=== PATIENT | male | born 1975 | race Caucasian/White ===

== ENCOUNTER 2017-03-10 19:43 | Inpatient (IN) ==
--- NOTE | 2017-03-10 20:08 | Emergency Department Note ---
Disposition Clinical Impression: Suicidal ideation Disposition: Admitted As Inpatient Condition: Undetermined Referrals: Dawit Vasquez MD [Partnered Physician] - Forms: ED Satisfaction Letter Time of Disposition: 23:09 Psych HPI - General Chief Complaint: ED Psychiatric Symptoms Stated Complaint: SI, has not slept in 4 days//not taking meds Time Seen by Provider: 03/10/17 20:04 Source: patient Mode of arrival: ambulatory Limitations: no limitations Nursing Notes Reviewed: Yes Vital Signs Reviewed: Yes - History of Present Illness HPI Narrative: A 1-year-old male with extensive history of bipolar disorder arrives to [facility] emergency department complaining of lack of sleep for the past 5 days, depression, suicidal ideations with plan. The patient states that he is feeling as though he is starting to get manic. The patient states that he has not been taking his medication for quite some time. The patient has been admitted to one in the past. He denies any homicidal or hallucinations at this time. The patient states he is having nightmares and having difficulty sleeping associated with this. Patient denies any other complaints at this time other than baseline right shoulder pain. Pt complaint: suicidal ideation, feels depressed Onset (ago): unknown Duration: constant, getting worse History of similar episodes: Yes Improves with: none Worsens with: none Context: not taking psychiatric medications Alleged intoxication: No Associated Psychiatric Symptoms: depression, suicidal ideation, racing thoughts Associated symptoms: Reports: denies other symptoms Traumatic symptoms: denies traumatic injury Treatments prior to arrival: none Self harm or harm to others: admits thoughts of self harm, has plan - Related Data Previous Rx's Medication Instructions Recorded Methocarbamol [Robaxin-750] 750 mg PO TID PRN #20 tablet 04/14/15 Naproxen [Naprosyn] 500 mg PO BID #20 tablet 04/14/15 OxyCODONE/APAP 10/325 [Percocet 1 each PO QID PRN #20 tablet 04/14/15 10/325] Hydrocodone/Acetaminophen [[place] 1 each PO Q6H PRN #8 tablet 05/10/16 5-325 Tablet] Ibuprofen [Motrin] 600 mg PO Q8HR PRN #20 tab 05/10/16 Amoxicillin 875 mg PO BID #20 tablet 07/15/16 Fexofenadine/Pseudoephedrine 1 each PO BID PRN #30 tab.er.12h 07/15/16 [Ana Laura-D 12 Hour Tablet] Fluticasone Propionate Nasal 2 spray NS DAILY PRN #1 unit 07/15/16 [Flonase] Ibuprofen [Motrin] 800 mg PO Q6-8H PRN #30 tablet 07/15/16 Ibuprofen 400 mg PO TID PRN 5 Days 08/22/16 Allergies Allergy/AdvReac Type Severity Reaction Status Date / Time .steroids Allergy Agitated Uncoded 05/10/16 07:14 All systems ED: reviewed and negative except as stated. Constitutional: Denies: fever, chills, weakness, weight change Eyes: Denies: eye pain, eye discharge, vision change ENT ED: Denies: ear pain, throat pain, dental pain, hearing loss, epistaxis, congestion, dysphagia Cardiovascular: Denies: chest pain, palpitations, dyspnea on exertion, edema, syncope Respiratory: Denies: cough, dyspnea, wheezes, hemoptysis, stridor Gastrointestinal: Denies: abdominal pain, nausea, vomiting, diarrhea, constipation, hematemesis, melena, hematochezia Genitourinary: Denies: urgency, dysuria, frequency, hematuria Musculoskeletal: Denies: back pain, neck pain, arthralgia, myalgia Integumentary: Denies: rash, abrasion, lesions Neurological: Denies: headache, weakness, numbness, paresthesias, confusion, abnormal gait, vertigo Psychiatric: Reports: anxiety, depression, suicidal thoughts. Denies: homicidal thoughts, auditory hallucinations, visual hallucinations Past Medical History - Past Medical History Attestation: Yes The following information was validated with the patient. Source: patient Medical history: Reports: non-contributory Surgical history: Reports: non-contributory Psychiatric history: Reports: anxiety, bipolar, depression, previous psychiatric hospitalization - Social History Smoking Status: Current every day smoker Smokeless Tobacco Status: No Alcohol use: Reports: heavy Drug use: Reports: none Physical Exam - General Limitations: no limitations General appearance: alert - Head Head exam: atraumatic, normocephalic, normal inspection - Eye Eye exam: Present: normal appearance, PERRL, EOMI - ENT ENT exam: normal exam, normal oropharynx, mucous membranes moist - Neck Neck exam: Present: normal inspection, full ROM, trachea midline - Chest Chest inspection: Present: normal inspection, symmetric chest wall rise - Respiratory Respiratory exam: Present: normal lung sounds bilaterally - Cardiovascular Cardiovascular exam: Present: regular rate, normal rhythm, normal heart sounds - Abdominal Exam Abdominal exam: Present: soft, Non-Tender. Absent: tenderness, distention, guarding, rebound, rigidity - Extremities Exam Extremities exam: Present: normal inspection, full ROM. Absent: tenderness, pedal edema - Neurological Exam Neurological exam: Present: alert, oriented X3 - Psychiatric Psychiatric exam: Present: depressed, flat affect, suicidal ideation Course Vital Signs Temperature 98.0 F 03/10/17 19:58 Pulse Rate 94 03/10/17 19:58 Respiratory Rate 18 03/10/17 19:58 Blood Pressure 154/93 03/10/17 19:58 O2 Sat by Pulse Oximetry 97 03/10/17 19:58 Temperature 98.0 F 03/10/17 19:58 Pulse Rate 94 03/10/17 19:58 Respiratory Rate 18 03/10/17 19:58 Blood Pressure 154/93 03/10/17 19:58 O2 Sat by Pulse Oximetry 97 03/10/17 19:58 Oxygen Delivery Oxygen Delivery Room Air Psych - MDM Narrative Medical decision making narrative: 2141: Patient is medically clear. 1A has been called. 2309: Patient accepted for admission to 1 a. - Lab Data Result diagrams: 03/10/17 20:51 03/10/17 20:51 Lab Results 03/10/17 03/10/17 03/10/17 Range/Units 20:14 20:14 20:51 WBC 9.8 (4.3-11.1) K/mcL RBC 4.68 (4.19-5.50) M/mcL Hgb 15.1 (12.9-16.9) g/dL Hct 42.8 (37.5-50.1) % MCV 91.5 (83.0-100.0) fL MCH 32.3 (28.0-33.3) pg MCHC 35.3 (31.6-35.5) g/dL RDW 13.5 (11.5-14.5) % Plt Count 297 (140-400) K/mcL MPV 9.5 (9.4-12.4) fL Immature Gran % 0.3 (0-4) % Seg Neutrophils % 51.9 % Lymphocytes % 39.5 % Monocytes % 6.7 % Eosinophils % 1.3 % Basophils % 0.3 % Neutrophils # 5.1 (1.6-8.9) K/mcL Lymphocytes # 3.9 (0.6-4.6) K/mcL Monocytes # 0.7 (0.0-1.3) K/mcL Eosinophils # 0.1 (0.0-0.6) K/mcL Basophils # 0.0 (0.0-0.2) K/mcL Sodium (136-145) mEq/L Potassium (3.5-4.5) mEq/L Chloride (98-109) mEq/L Carbon Dioxide (19-29) mEq/L BUN (8-26) mg/dL Creatinine (0.72-1.25) mg/dL Est GFR ( Amer) (> 60) Est GFR (Non-Af Amer) (> 60) BUN/Creatinine Ratio (6-26) Glucose (70-99) mg/dL Calculated Osmolality (280-300) Calcium (8.6-10.8) mg/dL TSH (0.350-4.840) mcIU/mL Urine Color Yellow (Yellow) Urine Clarity Clear (Clear) Urine pH 5.5 (5.0-8.0) pH Units Ur Specific [place] 1.028 H (1.010-1.025) Urine Protein Negative (Neg-Trace) mg/dL Urine Glucose (UA) Normal (Normal) mg/dL Urine Ketones Negative (Negative) mg/dL Urine Blood Large H (Negative) Urine Nitrite Negative (Negative) Urine Bilirubin Negative (Negative) Urine Urobilinogen Normal (Normal) mg/dL Ur Leukocyte Esterase Small H (Negative) Urine Microscopic RBC 5-15 H (0-3) per hpf Urine Microscopic WBC 5-15 H (0-3) per hpf Ur Squamous Epith Cells Many H (None-Few) per lpf Urine Bacteria Few (None-Few) per hpf Hyaline Casts Few (None-Few) per lpf Urine Mucus Few (Few) Urine Yeast Test Not Performed Salicylates (15-30) mg/dL Urine Opiates Screen Positive H (Nhwjyl=005) ng/mL Acetaminophen (10-30) mcg/mL Ur Barbiturates Screen Negative (Etrzxq=353) ng/mL Ur Phencyclidine Scrn Negative (Cutoff=25) ng/mL Ur Amphetamines Screen Negative (Xvjyju=4859) ng/mL U Benzodiazepines Scrn Positive H (Cxdptq=162) ng/mL Urine Cocaine Screen Negative (Cutoff= 300) ng/mL U Marijuana (THC) Screen Negative (Cutoff = 50) ng/mL Ethyl Alcohol (0-10) mg/dL 03/10/17 Range/Units 20:51 WBC (4.3-11.1) K/mcL RBC (4.19-5.50) M/mcL Hgb (12.9-16.9) g/dL Hct (37.5-50.1) % MCV (83.0-100.0) fL MCH (28.0-33.3) pg MCHC (31.6-35.5) g/dL RDW (11.5-14.5) % Plt Count (140-400) K/mcL MPV (9.4-12.4) fL Immature Gran % (0-4) % Seg Neutrophils % % Lymphocytes % % Monocytes % % Eosinophils % % Basophils % % Neutrophils # (1.6-8.9) K/mcL Lymphocytes # (0.6-4.6) K/mcL Monocytes # (0.0-1.3) K/mcL Eosinophils # (0.0-0.6) K/mcL Basophils # (0.0-0.2) K/mcL Sodium 137 (136-145) mEq/L Potassium 3.8 (3.5-4.5) mEq/L Chloride 104 (98-109) mEq/L Carbon Dioxide 25 (19-29) mEq/L BUN 11 (8-26) mg/dL Creatinine 0.91 (0.72-1.25) mg/dL Est GFR ( Amer) > 60 (> 60) Est GFR (Non-Af Amer) > 60 (> 60) BUN/Creatinine Ratio 12 (6-26) Glucose 96 (70-99) mg/dL Calculated Osmolality 283 (280-300) Calcium 8.9 (8.6-10.8) mg/dL TSH 1.245 (0.350-4.840) mcIU/mL Urine Color (Yellow) Urine Clarity (Clear) Urine pH (5.0-8.0) pH Units Ur Specific [place] (1.010-1.025) Urine Protein (Neg-Trace) mg/dL Urine Glucose (UA) (Normal) mg/dL Urine Ketones (Negative) mg/dL Urine Blood (Negative) Urine Nitrite (Negative) Urine Bilirubin (Negative) Urine Urobilinogen (Normal) mg/dL Ur Leukocyte Esterase (Negative) Urine Microscopic RBC (0-3) per hpf Urine Microscopic WBC (0-3) per hpf Ur Squamous Epith Cells (None-Few) per lpf Urine Bacteria (None-Few) per hpf Hyaline Casts (None-Few) per lpf Urine Mucus (Few) Urine Yeast Salicylates < 5.0 L (15-30) mg/dL Urine Opiates Screen (Ehqxnc=946) ng/mL Acetaminophen 1.0 L (10-30) mcg/mL Ur Barbiturates Screen (Bqofdk=255) ng/mL Ur Phencyclidine Scrn (Cutoff=25) ng/mL Ur Amphetamines Screen (Mndkgw=9113) ng/mL U Benzodiazepines Scrn (Zgejak=270) ng/mL Urine Cocaine Screen (Cutoff= 300) ng/mL U Marijuana (THC) Screen (Cutoff = 50) ng/mL Ethyl Alcohol < 10 (0-10) mg/dL - EKG Data EKG attestation: Yes I reviewed and interpreted this EKG. EKG results narrative: Heart rate 74 bpm. AL interval 197 ms. QTC 399 ms. Normal axis. Normal sinus rhythm. No ST elevation or ST depression noted. EKG similar in appearance to 03/01/2011 EKG. No acute changes noted. Psychiatric Medical Clearance - Medical Clearance Checklist Medical History: No Social History Section defined Current Vitals: Last Vital Signs Temp 98.0 F 03/10/17 19:58 Pulse 94 03/10/17 19:58 Resp 18 03/10/17 19:58 BP 154/93 03/10/17 19:58 Pulse Ox 97 03/10/17 19:58 Psychiatric Lab Panel: Drug Levels and Toxicity 03/10/17 03/10/17 20:14 20:51 Urine Opiates Screen Positive H Acetaminophen 1.0 L Ur Barbiturates Screen Negative Ur Phencyclidine Scrn Negative Ur Amphetamines Screen Negative U Benzodiazepines Scrn Positive H Urine Cocaine Screen Negative U Marijuana (THC) Screen Negative Ethyl Alcohol < 10 Abnormal Labs: Abnormal lab results Ur Specific [place] 1.028 (1.010-1.025) H 03/10/17 20:14 Urine Blood Large (Negative) H 03/10/17 20:14 Ur Leukocyte Esterase Small (Negative) H 03/10/17 20:14 Urine Microscopic RBC 5-15 per hpf (0-3) H 03/10/17 20:14 Urine Microscopic WBC 5-15 per hpf (0-3) H 03/10/17 20:14 Ur Squamous Epith Cells Many per lpf (None-Few) H 03/10/17 20:14 Salicylates < 5.0 mg/dL (15-30) L 03/10/17 20:51 Urine Opiates Screen Positive ng/mL (Tlpide=248) H 03/10/17 20:14 Acetaminophen 1.0 mcg/mL (10-30) L 03/10/17 20:51 U Benzodiazepines Scrn Positive ng/mL (Iejlsw=838) H 03/10/17 20:14 Statement of Medical Clearance: I have evaluated the patient, reviewed diagnostic information, and certify that the patient's medical condition is sufficiently stable that transfer to the psychiatric unit does not pose a significant risk of deterioration. Attestation Statement - Attestation Attestation: I examined this patient and my medical decision-making was reviewed with the ESTIMATOR PRINTING PLATE MAKING/PA/Advanced Practice Nurse/Resident Physician. I agree with the documented findings, disposition and treatment plan as described except to the extent set forth below.
[2017-03-10 20:22] LABS: Bilirubin,Urine Negative (Negative); Blood,Urine Large (Negative); Clarity,Urine Clear (Clear); Color,Urine Yellow (Yellow); Glucose,Urine (UA) Normal (Normal); Ketones,Urine Negative (Negative); Leukocyte Esterase,Urine Small (Negative); Nitrite,Urine Negative (Negative); PH,Urine 5.5 pH Units (5.0-8.0); Protein,Urine Negative (Neg-Trace); Specific Gravity,Urine 1.028 (1.010-1.025); Urobilinogen,Urine Normal (Normal)
[2017-03-10 20:24] LABS: Squamous Epithelial Cell,Urine Many per lpf (None-Few)
[2017-03-10 20:37] LABS: Bacteria,Urine Few per hpf (None-Few); Hyaline Casts,Urine Few per lpf (None-Few); Mucus,Urine Few (Few)
[2017-03-10 20:38] LABS: Amphetamine Screen,Urine Negative ng/mL (Cutoff=1000); Barbiturate Screen,Urine Negative ng/mL (Cutoff=200); Benzodiazepines Screen,Urine Positive ng/mL (Cutoff=200); Cannabinoid Screen,Urine Negative ng/mL (Cutoff = 50); Cocaine Screen,Urine Negative ng/mL (Cutoff= 300); Opiate Screen,Urine Positive ng/mL (Cutoff=300); Phencyclidine Screen,Urine Negative ng/mL (Cutoff=25)
[2017-03-10 20:57] LABS: Basophils % 0.3 %; Eosinophils # 0.1 K/mcL (0.0-0.6); Eosinophils % 1.3 %; Hematocrit 42.8 % (37.5-50.1); Hemoglobin 15.1 g/dL (12.9-16.9); Immature Granulocytes % 0.3 % (0-4); Lymphocytes # 3.9 K/mcL (0.6-4.6); Lymphocytes % 39.5 %; Mean Corpuscular HGB Conc 35.3 g/dL (31.6-35.5); Mean Corpuscular Hemoglobin 32.3 pg (28.0-33.3); Mean Corpuscular Volume 91.5 fL (83.0-100.0); Mean Platelet Volume 9.5 fL (9.4-12.4); Monocytes # 0.7 K/mcL (0.0-1.3); Monocytes % 6.7 %; Neutrophils # 5.1 K/mcL (1.6-8.9); Platelet Count 297 K/mcL (140-400); Red Blood Count 4.68 M/mcL (4.19-5.50); Red Cell Distribution Width 13.5 % (11.5-14.5); Segmented Neutrophils % 51.9 %
[2017-03-10 21:11] LABS: BUN/Creatinine Ratio 12 (6-26); Blood Urea Nitrogen 11 mg/dL (8-26); Calcium 8.9 mg/dL (8.6-10.8); Carbon Dioxide 25 mEq/L (19-29); Chloride 104 mEq/L (98-109); Glucose 96 mg/dL (70-99); Osmolality,Calculated 283 (280-300); Potassium 3.8 mEq/L (3.5-4.5); Sodium 137 mEq/L (136-145); eGFR For African Americans > 60 (> 60); eGFR For Non-African Americans > 60 (> 60)
[2017-03-10 21:13] LABS: Ethanol < 10 mg/dL (0-10); Salicylate < 5.0 mg/dL (15-30)
[2017-03-10 21:31] LABS: Thyroid Stimulating Hormone 1.245 mcIU/mL (0.350-4.840)
[2017-03-11] MEDS ORDERED: Mag Hydrox/Al Hydrox/Simeth 30 ML UDC PO PRN (00:13)
[2017-03-11] MEDS ORDERED: *HR* LORazepam 1 MG TABLET PO PRN (00:13)
[2017-03-11] MEDS ORDERED: *HR* LORazepam 2 MG/ML VIAL IM PRN (00:13)
[2017-03-11] MEDS ORDERED: MOM Conc 10 ML UD.LIQ PO PRN (00:13)
[2017-03-11] MEDS ORDERED: Haloperidol Lactate 5 MG/ML VIAL IM PRN (00:13)
[2017-03-11] MEDS: Mirtazapine 15 MG TABLET PO PRN ×2 (00:43→21:03)
[2017-03-11] MEDS: Acetaminophen 325 MG TABLET PO PRN ×2 (00:43→11:40)
[2017-03-11] MEDS ORDERED: diazePAM 5 MG TABLET PO SCH (09:00)
--- NOTE | 2017-03-11 10:52 | Psychiatry History & Physical ---
Date of Encounter: 03/11/17 Time of Encounter: 10:30 History of Present Illness Patient Stated Chief Complaint: "I think I am manic." Medicare Admission Attestation: For traditional Medicare patients the provided hospital inpatient services are reasonable and necessary and in the case of services not specified as inpatient -only under 42 CFR 419.22 (n), that they are appropriately provided as inpatient services in accordance 42 CFR 412.3. For Critical Access Hospital the patient may reasonably be expected to be discharged or transferred to a hospital within 96 hours after admission to the Critical Access Hospital. Admitted From: Emergency Dept Plans for Post Hospital Care: Transfer Other History of Present Illness: Mr. Ordonez is a 41 year old male with a history of bipolar disorder, anxiety, alcohol dependence who presented to the hospital with decreased sleep, increased depression and suicidal ideations. Patient reports that in the last 6 months he lost his home as well as a 18 year marriage. He does not have a steady job and has been staying with friends. The friend uses drugs and alcohol heavily and the patient felt that he needed to get out of the situation because he was falling into old habits. Patient does have a history of heavy alcohol use and has started to drink again. He reports that he stopped drinking heavily about 3 or 4 days ago. He denies withdrawal symptoms at this time. He does report panic attacks as well as generalized nervousness and anxiety. He reports severe depression with several vague ideas on how he would hurt himself. He did report yesterday in the ER that he had plans to shoot himself but he states he has no access to guns at this time. Patient states that he knows that he needs to get help and start taking his medications as prescribed. He has had periods of time where he has felt better and then stopped his medications. He denies auditory hallucinations but does state that he occasionally sees "faces and shadows." He does report 5 or so days without sleep but states that he has felt tired. He denies obsessions, delusions, paranoia. He has been on multiple psychiatric medications in the past and is not sure which ones have been the most helpful. Past Med Surg Social Fam HX - Past Medical History Medical history: no medical history - Past Psychiatric History Psychiatric history: Reports: bipolar, prior suicide attempt Past psychiatric history details: Patient reports 2 previous attempts to kill himself. Two previous psychiatric admissions. No current outpatient treatment. - Past Surgical History Surgical History: non-contributory - Social History Smoking Status: Current every day smoker Smokeless Tobacco Status: No Alcohol use: heavy Drug use: none Current living situation: Homeless Activity Level: Independent ambulation - Family History Mother Hx Family Cancer: Yes (colon) Father Hx Family Respiratory Disorders: Yes (COPD) Medications & Allergies No Known Home Drugs 03/11/17 [History] Allergies .steroids Allergy (Uncoded 05/10/16 07:14) Agitated Review of Systems Constitutional: Denies: fever, chills, weakness, weight change Eyes: Denies: eye pain, vision change Ears, Nose, Throat: Denies: ear pain, throat pain, dental pain, hearing loss, congestion Cardiovascular: Denies: chest pain, palpitations, dyspnea on exertion Respiratory: Denies: cough, dyspnea, wheezes Gastrointestinal: Denies: abdominal pain, nausea, vomiting, diarrhea, constipation Genitourinary male: Denies: urgency, dysuria, frequency, genital lesions Genitourinary female: Denies: urgency, dysuria, frequency, abnormal menses, dyspareunia Musculoskeletal: Reports: back pain, joint pain Integumentary: Denies: rash, lesions, pruritus Neurological: Denies: headache, weakness, numbness, memory loss Psychiatric: Reports: depression, anxiety, abnormal sleep pattern, suicidal ideation, difficulty concentrating, hopelessness, irritability, mood swings, panic attacks Endocrine: Denies: fatigue, heat or cold intolerance Hematologic/Lymphatic: Denies: easy bruising, lymphadenopathy Allergic/Immunologic: Denies: urticaria, itchy eyes Mental Status Exam Patient orientation: Yes Person, Yes Time, Yes Place Level of alertness: Alert Patient appearance: Unkempt, Disheveled Behavior: calm Eye contact: Diverts Contact Mood description: Depressed, Anxious Affect description: tearful, dysphoric Speech pattern: Normal rate, Normal rhythm, Normal tone Speech volume: Normal Thought process: Intact Thought content: Yes Suicidal ideation, No Homicidal ideation Perceptual disturbances: No Reacting to internal stimuli, No Auditory hallucinations, Yes Visual hallucinations Attention span: Capable of Focused Attention Patient reliability: Reliable Historian Intelligence estimate: Average Judgment: Limited Insight: Minimal Exam - HEENT Head exam IM: Present: atraumatic - Neurological Neurological exam IM: Present: CN II-XII intact - Extremities Extremities exam IM: Present: full ROM - Skin Skin exam IM: Present: dry, intact Results - Vital Signs Vital signs: Temp Pulse Resp BP Pulse Ox 97.8 F 74 18 120/65 97 03/11/17 10:15 03/11/17 10:15 03/11/17 10:15 03/11/17 10:15 03/10/17 19:58 - Labs Labs: Laboratory Last Values WBC 9.8 K/mcL (4.3-11.1) 03/10/17 20:51 RBC 4.68 M/mcL (4.19-5.50) 03/10/17 20:51 Hgb 15.1 g/dL (12.9-16.9) 03/10/17 20:51 Hct 42.8 % (37.5-50.1) 03/10/17 20:51 MCV 91.5 fL (83.0-100.0) 03/10/17 20:51 MCH 32.3 pg (28.0-33.3) 03/10/17 20:51 MCHC 35.3 g/dL (31.6-35.5) 03/10/17 20:51 RDW 13.5 % (11.5-14.5) 03/10/17 20:51 Plt Count 297 K/mcL (140-400) 03/10/17 20:51 MPV 9.5 fL (9.4-12.4) 03/10/17 20:51 Immature Gran % 0.3 % (0-4) 03/10/17 20:51 Seg Neutrophils % 51.9 % 03/10/17 20:51 Lymphocytes % 39.5 % 03/10/17 20:51 Monocytes % 6.7 % 03/10/17 20:51 Eosinophils % 1.3 % 03/10/17 20:51 Basophils % 0.3 % 03/10/17 20:51 Neutrophils # 5.1 K/mcL (1.6-8.9) 03/10/17 20:51 Lymphocytes # 3.9 K/mcL (0.6-4.6) 03/10/17 20:51 Monocytes # 0.7 K/mcL (0.0-1.3) 03/10/17 20:51 Eosinophils # 0.1 K/mcL (0.0-0.6) 03/10/17 20:51 Basophils # 0.0 K/mcL (0.0-0.2) 03/10/17 20:51 Sodium 137 mEq/L (136-145) 03/10/17 20:51 Potassium 3.8 mEq/L (3.5-4.5) 03/10/17 20:51 Chloride 104 mEq/L (98-109) 03/10/17 20:51 Carbon Dioxide 25 mEq/L (19-29) 03/10/17 20:51 BUN 11 mg/dL (8-26) 03/10/17 20:51 Creatinine 0.91 mg/dL (0.72-1.25) 03/10/17 20:51 Est GFR ( Amer) > 60 (> 60) 03/10/17 20:51 Est GFR (Non-Af Amer) > 60 (> 60) 03/10/17 20:51 BUN/Creatinine Ratio 12 (6-26) 03/10/17 20:51 Glucose 96 mg/dL (70-99) 03/10/17 20:51 Calculated Osmolality 283 (280-300) 03/10/17 20:51 Calcium 8.9 mg/dL (8.6-10.8) 03/10/17 20:51 TSH 1.245 mcIU/mL (0.350-4.840) 03/10/17 20:51 Urine Color Yellow (Yellow) 03/10/17 20:14 Urine Clarity Clear (Clear) 03/10/17 20:14 Urine pH 5.5 pH Units (5.0-8.0) 03/10/17 20:14 Ur Specific [place] 1.028 (1.010-1.025) H 03/10/17 20:14 Urine Protein Negative mg/dL (Neg-Trace) 03/10/17 20:14 Urine Glucose (UA) Normal mg/dL (Normal) 03/10/17 20:14 Urine Ketones Negative mg/dL (Negative) 03/10/17 20:14 Urine Blood Large (Negative) H 03/10/17 20:14 Urine Nitrite Negative (Negative) 03/10/17 20:14 Urine Bilirubin Negative (Negative) 03/10/17 20:14 Urine Urobilinogen Normal mg/dL (Normal) 03/10/17 20:14 Ur Leukocyte Esterase Small (Negative) H 03/10/17 20:14 Urine Microscopic RBC 5-15 per hpf (0-3) H 03/10/17 20:14 Urine Microscopic WBC 5-15 per hpf (0-3) H 03/10/17 20:14 Ur Squamous Epith Cells Many per lpf (None-Few) H 03/10/17 20:14 Urine Bacteria Few per hpf (None-Few) 03/10/17 20:14 Hyaline Casts Few per lpf (None-Few) 03/10/17 20:14 Urine Mucus Few (Few) 03/10/17 20:14 Urine Yeast Test Not Performed 03/10/17 20:14 Salicylates < 5.0 mg/dL (15-30) L 03/10/17 20:51 Urine Opiates Screen Positive ng/mL (Hkziqq=544) H 03/10/17 20:14 Acetaminophen 1.0 mcg/mL (10-30) L 03/10/17 20:51 Ur Barbiturates Screen Negative ng/mL (Lgoxey=525) 03/10/17 20:14 Ur Phencyclidine Scrn Negative ng/mL (Cutoff=25) 03/10/17 20:14 Ur Amphetamines Screen Negative ng/mL (Olhnjb=2762) 03/10/17 20:14 U Benzodiazepines Scrn Positive ng/mL (Tyizkd=878) H 03/10/17 20:14 Urine Cocaine Screen Negative ng/mL (Cutoff= 300) 03/10/17 20:14 U Marijuana (THC) Screen Negative ng/mL (Cutoff = 50) 03/10/17 20:14 Ethyl Alcohol < 10 mg/dL (0-10) 03/10/17 20:51 Assessment and Plan (1) Bipolar disorder Current visit: Yes Status: Acute Plan: Admit inpatient for safety and stabilization, Close observation, Suicide Precautions per unit protocol, Encourage participation in unit milieu, Group Therapy, Monitor sleep, Monitor appetite Additional Plan: We will start Seroquel 100 mg by mouth daily at bedtime for mood. Also start Lexapro 10 mg by mouth daily. Encourage positive coping strategies as well as appropriate ADLs. Risks, benefits, side effects, alternatives discussed w/pt: Yes Patient agreeable to treatment: Yes Qualifiers: Active/Remission status: currently active Current bipolar episode type: mixed Current episode severity: severe Psychotic features: without psychotic features Qualified Code(s): F31.63 - Bipolar disorder, current episode mixed, severe, without psychotic features (2) Anxiety Current visit: Yes Status: Acute Plan: Admit inpatient for safety and stabilization, Close observation, Suicide Precautions per unit protocol, Encourage participation in unit milieu, Group Therapy, Monitor sleep, Monitor appetite Additional Plan: Vistaril as needed for anxiety. Encourage group attendance. (3) Alcohol abuse Current visit: Yes Status: Acute Plan: Admit inpatient for safety and stabilization, Close observation, Suicide Precautions per unit protocol, Encourage participation in unit milieu, Group Therapy, Monitor sleep, Monitor appetite Additional Plan: Patient reports intermittent alcohol use. Vitals currently stable but we will monitor for any signs of withdrawal. Valium as when necessary to be used for withdrawal symptoms. Risks, benefits, side effects, alternatives discussed w/pt: Yes Patient agreeable to treatment: Yes
[2017-03-11] MEDS: Nicotine 21 MG PATCH.TD24 TD SCH (11:39)
--- NOTE | 2017-03-11 12:17 | Electrocardiograph Report ---
[address] [address] Test Date: 2017-03-10 Pat Name: Asad Ordonez Department: 105 Room: 1A24 Gender: M Annual Giving Officer: JOHANN : 1975 Requested By: Hamlet Rosales Order Number: [id number] Reading MD: Levi Mclean MD Measurements Intervals [place] Rate: 74 P: 54 [place]: 197 QRS: 74 QRSD: 92 T: 23 QT: 371 QTc: 399 Interpretive Statements SINUS RHYTHM WITH SINUS ARRHYTHMIA Electronically Signed On 03-11-2017 12:15:57 EDT by Levi Mclean MD
[2017-03-11] MEDS: hydrOXYzine pamoate 25 MG CAPSULE PO PRN ×2 (16:20→23:28)
[2017-03-11] MEDS: diazePAM 5 MG TABLET PO PRN (21:03)
[2017-03-12] MEDS: Nicotine 21 MG PATCH.TD24 TD SCH (09:18)
[2017-03-12] MEDS: diazePAM 5 MG TABLET PO PRN (09:24)
[2017-03-12 10:35] VITALS: BP 123/76
--- NOTE | 2017-03-12 11:11 | Psychiatry Progress Note ---
Date of Encounter: 03/12/17 Review of Systems Psychiatric: Reports: depression, anxiety, abnormal sleep pattern, suicidal ideation, difficulty concentrating, hopelessness, irritability, mood swings, panic attacks Results - Vital Signs Vital Signs: Temp Pulse Resp BP Pulse Ox 97.1 F L 81 16 123/76 97 03/12/17 09:00 03/12/17 09:00 03/12/17 09:00 03/12/17 09:00 03/10/17 19:58 Assessment and Plan (1) Bipolar disorder Current visit: Yes Status: Acute Risks, benefits, side effects, alternatives discussed w/pt: Yes Patient agreeable to treatment: Yes Qualifiers: Active/Remission status: currently active Current bipolar episode type: mixed Current episode severity: severe Psychotic features: without psychotic features Qualified Code(s): F31.63 - Bipolar disorder, current episode mixed, severe, without psychotic features (2) Anxiety Current visit: Yes Status: Acute (3) Alcohol abuse Current visit: Yes Status: Acute Risks, benefits, side effects, alternatives discussed w/pt: Yes Patient agreeable to treatment: Yes Consult Discharge Plan - Plan Referrals: [facility] [Outside] - 03/18/17 10:30 am (The above appointment is with Sandie Goodman, counselor at [facility]'s [facility]. Your first appointment will be very thorough and the total appointment time will take between two and three hours. You will be completing paperwork, meeting with a counselor and a nurse, and developing a treatment plan. You will receive follow- up appointments for on-going services , which could include community support, mental health and substance abuse counseling, groups/partial hospitalization programming, the medication assisted treatment, and psychiatric medication management. Please bring the following with you to your first visit to the clinic: 1) proof of household income (two consecutive pay stubs, social security award letter, bank statement, statement letter from [facility], child support statement, IRS 1040 or W2 form, or a statement from the person who financially supports you stating they help provide for your basic needs), 2) proof of residency (drivers license, a piece of mail showing your address, a statement from person you live with verifying you live at their address), 3) your social security card, 4) photo ID, and 5) your insurance card (if you have commercial insurance you must call to obtain a prior authorization number before you arrive to your first appointment). If you do not bring these items, you will not be seen.) Dawit Vasquez MD [Partnered Physician] - 03/19/17 1:15 pm (The above appointment is with Dr. Dawit Vasquez, primary care provider, for ongoing health and medication management services.)
--- NOTE | 2017-03-12 13:01 | Discharge Summary ---
Date of Encounter: 03/12/17 Time of Encounter: 12:25 Diagnosis - Discharge Diagnosis (1) Bipolar disorder Priority: Primary Status: Acute Qualifiers: Active/Remission status: currently active Current bipolar episode type: mixed Current episode severity: severe Psychotic features: without psychotic features Qualified Code(s): F31.63 - Bipolar disorder, current episode mixed, severe, without psychotic features (2) Anxiety Priority: Secondary Status: Acute (3) Alcohol abuse Priority: Secondary Status: Acute Medications - Discharge Medications Prescriptions: Escitalopram [Lexapro] 10 mg PO DAILY #30 tablet hydrOXYzine pamoate [HydrOXYzine Pamoate] 25 mg PO TID PRN #30 capsule PRN Reason: Anxiety Mirtazapine [Remeron] 30 mg PO HS PRN #30 tablet PRN Reason: Insomnia Quetiapine Fumarate [Seroquel] 100 mg PO HS #30 tablet Escitalopram [Lexapro] 10 mg PO DAILY #30 tablet 03/12/17 [Rx] Mirtazapine [Remeron] 30 mg PO HS PRN #30 tablet 03/12/17 [Rx] Quetiapine Fumarate [Seroquel] 100 mg PO HS #30 tablet 03/12/17 [Rx] hydrOXYzine pamoate [HydrOXYzine Pamoate] 25 mg PO TID PRN #30 capsule 03/12/17 [Rx] Allergies .steroids Allergy (Uncoded 05/10/16 07:14) Agitated Provider Date of admission: 03/10/17 23:13 Primary care physician: PCP NO Discharging clinician: Cathy Davis Assessment and Plan - Patient/Caregiver Discharge Instructions Activity: resume usual activities as tolerated Diet: regular diet - Follow up Plan Follow up with: [facility] [Outside] - 03/18/17 10:30 am (The above appointment is with Sandie Goodman, counselor at [facility]. Your first appointment will be very thorough and the total appointment time will take between two and three hours. You will be completing paperwork, meeting with a counselor and a nurse, and developing a treatment plan. You will receive follow- up appointments for on-going services , which could include community support, mental health and substance abuse counseling, groups/partial hospitalization programming, the medication assisted treatment, and psychiatric medication management. Please bring the following with you to your first visit to the clinic: 1) proof of household income (two consecutive pay stubs, social security award letter, bank statement, statement letter from [facility], child support statement, IRS 1040 or W2 form, or a statement from the person who financially supports you stating they help provide for your basic needs), 2) proof of residency (drivers license, a piece of mail showing your address, a statement from person you live with verifying you live at their address), 3) your social security card, 4) photo ID, and 5) your insurance card (if you have commercial insurance you must call to obtain a prior authorization number before you arrive to your first appointment). If you do not bring these items, you will not be seen.) Dawit Vasquez MD [Partnered Physician] - 03/19/17 1:15 pm (The above appointment is with Dr. Dawit Vasquez, primary care provider, for ongoing health and medication management services.) Functional capacity at discharge: independent ambulation Overall status at discharge: Stable Disposition: Home, Self-Care Hospital Course Hospital course: Mr. Ordonez is a 41 year old male with a history of bipolar disorder and anxiety as well as alcohol abuse who was admitted to the hospital with alcohol intoxication and depression with suicidal ideation. He was admitted to for psychiatric stabilization. Patient was incorporated into the therapeutic milieu and offer group and individual as well as recreational therapy. He was placed on suicide precautions per unit protocol. Patient states he has been off his medication. He cannot remember which meds work best for him. He was restarted on Seroquel for sleep and mood and Lexapro for depression. Patient tolerated these medications well and denied side effects. We discussed the negative effects that alcohol can have on mood. Patient did cooperate and participate in some group and unit activities. Throughout the course of hospital stay patient stated he felt better. He denied suicidal or homicidal ideation, intent, or plan. He initially stated he was homeless but found that he could stay with a friend. This information was verified by staff and patient was interested in continuing his treatment as an outpatient. He was discharged in stable condition. - Time Spent with Patient Total time spent providing and/or coordinating discharge services: Greater than 30 minutes Quality - Multiple Antipsychotics Patient discharged on 2 or more antipsychotic medications: No Procedures - Procedures Procedures: Medication Management, Crisis Stabilization, Supportive Therapy, Group Therapy, Psychoeducational Therapy Mental Status Exam - Mental Status Exam Patient orientation: Yes Person, Yes Time, Yes Place Level of alertness: Alert Patient appearance: Appropriate, Well Groomed Behavior: calm, cooperative Psychomotor activity: Normal Eye contact: Maintains Eye Contact Mood description: Euthymic/stable Affect description: congruent with mood, full range Speech pattern: Normal rate, Normal rhythm, Normal tone Speech Volume: Normal Thought process: Linear, Goal Oriented Thought Content: No Suicidal ideation, No Homicidal ideation, No Overt delusions Perceptual Disturbances: No Auditory hallucinations, No Visual hallucinations Judgment: Limited Insight: Partial
== END 2017-03-12 13:45 | disposition home or self-care (01) | DRG 753 ==
LOC: EMEROO 19:43 → 1ANU 23:13
PROVIDERS: ADMIT Student in an Organized Health Care Education/Training Program; ATTEND Student in an Organized Health Care Education/Training Program

== ENCOUNTER 2018-03-03 17:12 | Inpatient (IN) ==
[2018-03-03 17:26] LABS: Bilirubin,Urine Negative (Negative); Blood,Urine Large (Negative); Color,Urine Yellow (Yellow); Glucose,Urine (UA) Normal (Normal); Ketones,Urine Negative (Negative); Leukocyte Esterase,Urine Moderate (Negative); Nitrite,Urine Negative (Negative); PH,Urine 5.5 pH Units (5.0-8.0); Protein,Urine Negative (Neg-Trace); Urobilinogen,Urine Normal (Normal)
[2018-03-03 17:29] LABS: Bacteria,Urine None Seen per hpf (None-Few); Hyaline Casts,Urine None Seen per lpf (None-Few); RBC,Urine 30-50 per hpf (0-3); Squamous Epithelial Cell,Urine Many per lpf (None-Few); WBC,Urine 15-30 per hpf (0-3)
--- NOTE | 2018-03-03 17:34 | Emergency Department Note ---
Disposition Clinical Impression: Suicidal ideation Disposition: Admitted As Inpatient Condition: Fair Referrals: Nancy Llanos [Advanced Practice Nurse] - Forms: ED Satisfaction Letter Time of Disposition: 21:54 Psych HPI - General Chief Complaint: ED Psychiatric Symptoms Stated Complaint: "wants 1A eval" Time Seen by Provider: 03/03/18 17:23 Source: patient Mode of arrival: ambulatory Limitations: no limitations Nursing Notes Reviewed: Yes Vital Signs Reviewed: Yes - History of Present Illness HPI Narrative: Patient feels anxious, sleepless, depressed, suicidal after being off his lithium and Seroquel for the past 3 weeks. He has a history of psychiatric disease. He has been borrowing medications from friends including trazodone and Xanax. He denies illicit substance ingestion. Pt complaint: suicidal ideation, feels depressed Onset (ago): week(s) Duration: constant History of similar episodes: Yes Improves with: none Context: not taking psychiatric medications Alleged intoxication: No Associated Psychiatric Symptoms: depression, suicidal ideation, anxiety Associated symptoms: Reports: other (Sleeplessness) - Related Data Home Medications Medication Instructions Recorded Confirmed [place] Carbonate ER [Eskalith] 450 mg PO BID 12/08/17 12/08/17 Omeprazole [PriLOSEC] 40 mg PO DAILY 12/08/17 12/08/17 OxyCODONE/APAP 5/325 [Percocet 1 each PO Q6HR PRN 12/08/17 12/08/17 5/325 MG] Previous Rx's Medication Instructions Recorded Quetiapine Fumarate [Seroquel] 100 mg PO HS #30 tablet 03/12/17 OxyCODONE Immed Rel [Roxicodone 5 5 mg PO Q4HR PRN 7 Days #30 tablet 12/09/17 MG] Tizanidine HCl 4 mg PO TID PRN 10 Days #30 tablet 12/09/17 Tramadol HCl [Ultram] 50 mg PO TID PRN 5 Days #15 tab 12/10/17 OxyCODONE/APAP 5/325 [Percocet 1 each PO Q6H PRN 1 Days #2 tablet 12/19/17 5/325 MG] Allergies Allergy/AdvReac Type Severity Reaction Status Date / Time .steroids Allergy Agitated Uncoded 12/10/17 17:29 All systems ED: reviewed and negative except as stated. Constitutional: Reports: as per HPI Eyes: Reports: as per HPI ENT ED: Reports: as per HPI Cardiovascular: Reports: as per HPI Respiratory: Reports: as per HPI Gastrointestinal: Reports: as per HPI Genitourinary: Reports: as per HPI Musculoskeletal: Reports: as per HPI Integumentary: Reports: as per HPI Neurological: Reports: as per HPI Psychiatric: Reports: anxiety, depression, suicidal thoughts Endocrine: Reports: as per HPI Hematological/Lymphatic: Reports: as per HPI Allergic/Immunologic: Reports: as per HPI Past Medical History - Past Medical History Source: patient Medical history: Reports: hyperlipidemia, other Surgical history: Reports: orthopedic, other, other Psychiatric history: Reports: bipolar, prior suicide attempt - Social History Smoking Status: Current every day smoker Smokeless Tobacco Status: No Alcohol use: Reports: none Drug use: Reports: none Physical Exam - General Limitations: no limitations - Head Head exam: atraumatic - Eye Eye exam: Present: normal appearance - ENT ENT exam: normal exam - Neck Neck exam: Present: normal inspection, full ROM - Chest Chest inspection: Present: normal inspection, symmetric chest wall rise - Respiratory Respiratory exam: Present: normal lung sounds bilaterally - Cardiovascular Cardiovascular exam: Present: regular rate, normal rhythm, normal heart sounds - Rectal Exam Rectal exam: Present: deferred - Extremities Exam Extremities exam: Present: normal inspection - Neurological Exam Neurological exam: Present: alert, oriented X3, CN II-XII intact - Psychiatric Psychiatric exam: Present: normal affect, normal mood - Skin Skin exam: Present: warm, dry, intact Course Course Narrative: Patient presents feeling suicidal, depressed, anxious. He has been off his lithium and Seroquel for 3 weeks. Behavioral consultation to be initiated upon planned medical clearance - Reevaluation(s) Reevaluation #1: Cleared medically for behavioral evaluation. Reevaluation #2: 1A accepts admission Vital Signs Temperature 98.3 F 03/03/18 17:12 Pulse Rate 78 03/03/18 17:12 Respiratory Rate 16 03/03/18 17:12 Blood Pressure 132/82 03/03/18 17:12 O2 Sat by Pulse Oximetry 97 03/03/18 17:12 Temperature 98.3 F 03/03/18 17:12 Pulse Rate 78 03/03/18 17:12 Respiratory Rate 16 03/03/18 17:12 Blood Pressure 132/82 03/03/18 17:12 O2 Sat by Pulse Oximetry 97 03/03/18 17:12 Oxygen Delivery Oxygen Delivery Room Air Psych - Lab Data Lab results reviewed: Yes I reviewed the patient's lab results. Result diagrams: 03/03/18 17:41 03/03/18 17:41 Lab Results 03/03/18 03/03/18 03/03/18 Range/Units 17:15 17:19 17:41 WBC 7.6 (4.3-11.1) K/mcL RBC 5.01 (4.19-5.50) M/mcL Hgb 15.5 (12.9-16.9) g/dL Hct 43.8 (37.5-50.1) % MCV 87.4 (83.0-100.0) fL MCH 30.9 (28.0-33.3) pg MCHC 35.4 (31.6-35.5) g/dL RDW 13.6 (11.5-14.5) % Plt Count 363 (140-400) K/mcL MPV 9.6 (9.4-12.4) fL Immature Gran % 0.4 (0-4) % Seg Neutrophils % 64.6 % Lymphocytes % 27.3 % Monocytes % 6.3 % Eosinophils % 1.1 % Basophils % 0.3 % Neutrophils # 4.9 (1.6-8.9) K/mcL Lymphocytes # 2.1 (0.6-4.6) K/mcL Monocytes # 0.5 (0.0-1.3) K/mcL Eosinophils # 0.1 (0.0-0.6) K/mcL Basophils # 0.0 (0.0-0.2) K/mcL Sodium (136-145) mEq/L Potassium (3.5-5.1) mEq/L Chloride (98-107) mEq/L Carbon Dioxide (23-29) mEq/L BUN (6-20) mg/dL Creatinine (0.70-1.30) mg/dL Est GFR ( Amer) (> 60) Est GFR (Non-Af Amer) (> 60) BUN/Creatinine Ratio (6-26) Glucose (70-105) mg/dL Calculated Osmolality (280-300) Calcium (8.6-10.3) mg/dL Urine Color Yellow (Yellow) Urine Clarity Hazy (Clear) Urine pH 5.5 (5.0-8.0) pH Units Ur Specific [place] 1.020 (1.010-1.025) Urine Protein Negative (Neg-Trace) mg/dL Urine Glucose (UA) Normal (Normal) mg/dL Urine Ketones Negative (Negative) mg/dL Urine Blood Large H (Negative) Urine Nitrite Negative (Negative) Urine Bilirubin Negative (Negative) Urine Urobilinogen Normal (Normal) mg/dL Ur Leukocyte Esterase Moderate H (Negative) Urine Microscopic RBC 30-50 H (0-3) per hpf Urine Microscopic WBC 15-30 H (0-3) per hpf Ur Squamous Epith Cells Many H (None-Few) per lpf Urine Bacteria None Seen (None-Few) per hpf Hyaline Casts None Seen (None-Few) per lpf Ur Culture Indicated? NO. A (NO) Salicylates (15.0-30.0) mg/dL Urine Opiates Screen Negative (Yyavfp=235) ng/mL Acetaminophen (10-20) mcg/mL Ur Barbiturates Screen Negative (Srpiye=999) ng/mL Ur Phencyclidine Scrn Negative (Cutoff=25) ng/mL Ur Amphetamines Screen Negative (Gpmhxg=6892) ng/mL U Benzodiazepines Scrn Positive H (Pkjxrf=729) ng/mL [place] (0.6-1.2) mEq/L Urine Cocaine Screen Positive H (Cutoff= 300) ng/mL U Marijuana (THC) Screen Negative (Cutoff = 50) ng/mL Ur Drug Screen Interp See Below Ethyl Alcohol (Less than 10) mg/dL 03/03/18 03/03/18 Range/Units 17:41 17:41 WBC (4.3-11.1) K/mcL RBC (4.19-5.50) M/mcL Hgb (12.9-16.9) g/dL Hct (37.5-50.1) % MCV (83.0-100.0) fL MCH (28.0-33.3) pg MCHC (31.6-35.5) g/dL RDW (11.5-14.5) % Plt Count (140-400) K/mcL MPV (9.4-12.4) fL Immature Gran % (0-4) % Seg Neutrophils % % Lymphocytes % % Monocytes % % Eosinophils % % Basophils % % Neutrophils # (1.6-8.9) K/mcL Lymphocytes # (0.6-4.6) K/mcL Monocytes # (0.0-1.3) K/mcL Eosinophils # (0.0-0.6) K/mcL Basophils # (0.0-0.2) K/mcL Sodium 140 (136-145) mEq/L Potassium 3.8 (3.5-5.1) mEq/L Chloride 109 H (98-107) mEq/L Carbon Dioxide 25 (23-29) mEq/L BUN 8 (6-20) mg/dL Creatinine 0.84 (0.70-1.30) mg/dL Est GFR ( Amer) > 60 (> 60) Est GFR (Non-Af Amer) > 60 (> 60) BUN/Creatinine Ratio 10 (6-26) Glucose 103 (70-105) mg/dL Calculated Osmolality 289 (280-300) Calcium 9.2 (8.6-10.3) mg/dL Urine Color (Yellow) Urine Clarity (Clear) Urine pH (5.0-8.0) pH Units Ur Specific [place] (1.010-1.025) Urine Protein (Neg-Trace) mg/dL Urine Glucose (UA) (Normal) mg/dL Urine Ketones (Negative) mg/dL Urine Blood (Negative) Urine Nitrite (Negative) Urine Bilirubin (Negative) Urine Urobilinogen (Normal) mg/dL Ur Leukocyte Esterase (Negative) Urine Microscopic RBC (0-3) per hpf Urine Microscopic WBC (0-3) per hpf Ur Squamous Epith Cells (None-Few) per lpf Urine Bacteria (None-Few) per hpf Hyaline Casts (None-Few) per lpf Ur Culture Indicated? (NO) Salicylates < 2.5 L (15.0-30.0) mg/dL Urine Opiates Screen (Hjbflp=726) ng/mL Acetaminophen < 10 L (10-20) mcg/mL Ur Barbiturates Screen (Okihim=746) ng/mL Ur Phencyclidine Scrn (Cutoff=25) ng/mL Ur Amphetamines Screen (Npxmpi=9699) ng/mL U Benzodiazepines Scrn (Nwhtlo=228) ng/mL [place] < 0.1 L (0.6-1.2) mEq/L Urine Cocaine Screen (Cutoff= 300) ng/mL U Marijuana (THC) Screen (Cutoff = 50) ng/mL Ur Drug Screen Interp Ethyl Alcohol < 10 (Less than 10) mg/dL Psychiatric Medical Clearance - Medical Clearance Checklist Medical History: No Social History Section defined Current Vitals: Last Vital Signs Temp 98.3 F 03/03/18 17:12 Pulse 78 03/03/18 17:12 Resp 16 03/03/18 17:12 BP 132/82 03/03/18 17:12 Pulse Ox 97 03/03/18 17:12 Psychiatric Lab Panel: Drug Levels and Toxicity 03/03/18 03/03/18 03/03/18 17:19 17:41 17:41 Urine Opiates Screen Negative Acetaminophen < 10 L Ur Barbiturates Screen Negative Ur Phencyclidine Scrn Negative Ur Amphetamines Screen Negative U Benzodiazepines Scrn Positive H [place] < 0.1 L Urine Cocaine Screen Positive H U Marijuana (THC) Screen Negative Ethyl Alcohol < 10 Abnormal Labs: Abnormal lab results Chloride 109 mEq/L (98-107) H 03/03/18 17:41 Urine Blood Large (Negative) H 03/03/18 17:15 Ur Leukocyte Esterase Moderate (Negative) H 03/03/18 17:15 Urine Microscopic RBC 30-50 per hpf (0-3) H 03/03/18 17:15 Urine Microscopic WBC 15-30 per hpf (0-3) H 03/03/18 17:15 Ur Squamous Epith Cells Many per lpf (None-Few) H 03/03/18 17:15 Ur Culture Indicated? NO. (NO) A 03/03/18 17:15 Salicylates < 2.5 mg/dL (15.0-30.0) L 03/03/18 17:41 Acetaminophen < 10 mcg/mL (10-20) L 03/03/18 17:41 U Benzodiazepines Scrn Positive ng/mL (Aoaeqq=164) H 03/03/18 17:19 [place] < 0.1 mEq/L (0.6-1.2) L 03/03/18 17:41 Urine Cocaine Screen Positive ng/mL (Cutoff= 300) H 03/03/18 17:19 Statement of Medical Clearance: I have evaluated the patient, reviewed diagnostic information, and certify that the patient's medical condition is sufficiently stable that transfer to the psychiatric unit does not pose a significant risk of deterioration.
[2018-03-03 17:44] LABS: Clarity,Urine Hazy (Clear)
[2018-03-03 17:49] LABS: Basophils % 0.3 %; Eosinophils # 0.1 K/mcL (0.0-0.6); Eosinophils % 1.1 %; Hematocrit 43.8 % (37.5-50.1); Hemoglobin 15.5 g/dL (12.9-16.9); Immature Granulocytes % 0.4 % (0-4); Lymphocytes # 2.1 K/mcL (0.6-4.6); Lymphocytes % 27.3 %; Mean Corpuscular HGB Conc 35.4 g/dL (31.6-35.5); Mean Corpuscular Hemoglobin 30.9 pg (28.0-33.3); Mean Corpuscular Volume 87.4 fL (83.0-100.0); Mean Platelet Volume 9.6 fL (9.4-12.4); Monocytes # 0.5 K/mcL (0.0-1.3); Monocytes % 6.3 %; Neutrophils # 4.9 K/mcL (1.6-8.9); Platelet Count 363 K/mcL (140-400); Red Blood Count 5.01 M/mcL (4.19-5.50); Red Cell Distribution Width 13.6 % (11.5-14.5); Segmented Neutrophils % 64.6 %
[2018-03-03 17:54] LABS: Amphetamine Screen,Urine Negative ng/mL (Cutoff=1000); Barbiturate Screen,Urine Negative ng/mL (Cutoff=200); Benzodiazepines Screen,Urine Positive ng/mL (Cutoff=200); Cannabinoid Screen,Urine Negative ng/mL (Cutoff = 50); Cocaine Screen,Urine Positive ng/mL (Cutoff= 300); Opiate Screen,Urine Negative ng/mL (Cutoff=300); Phencyclidine Screen,Urine Negative ng/mL (Cutoff=25)
[2018-03-03] MEDS ORDERED: ALPRAZolam 0.5 MG TABLET PO ONE (18:09)
[2018-03-03 18:10] LABS: Acetaminophen < 10 mcg/mL (10-20); BUN/Creatinine Ratio 10 (6-26); Blood Urea Nitrogen 8 mg/dL (6-20); Calcium 9.2 mg/dL (8.6-10.3); Carbon Dioxide 25 mEq/L (23-29); Chloride 109 mEq/L (98-107); Ethanol < 10 mg/dL (Less than 10); Glucose 103 mg/dL (70-105); Osmolality,Calculated 289 (280-300); Potassium 3.8 mEq/L (3.5-5.1); Salicylate < 2.5 mg/dL (15.0-30.0); Sodium 140 mEq/L (136-145); eGFR For African Americans > 60 (> 60); eGFR For Non-African Americans > 60 (> 60)
[2018-03-03] MEDS ORDERED: Mag Hydrox/Al Hydrox/Simeth 30 ML UDC PO PRN (22:06)
[2018-03-03] MEDS ORDERED: MOM Conc 10 ML UD.LIQ PO PRN (22:06)
[2018-03-03] MEDS ORDERED: *HR* LORazepam 2 MG/ML VIAL IM PRN (22:06)
[2018-03-03] MEDS ORDERED: traZODone 50 MG TABLET PO PRN (22:06)
[2018-03-03] MEDS ORDERED: Haloperidol Lactate 5 MG/ML VIAL IM PRN (22:06)
[2018-03-03] MEDS ORDERED: *HR* LORazepam 1 MG TABLET PO PRN (22:06)
[2018-03-04] MEDS ORDERED: Nicotine 21 MG PATCH.TD24 TD SCH (11:15)
[2018-03-04] MEDS: hydrOXYzine pamoate 25 MG CAPSULE PO PRN ×2 (11:21→18:00)
--- NOTE | 2018-03-04 12:47 | Psychiatry History & Physical ---
Date of Encounter: 03/04/18 Time of Encounter: 12:41 History of Present Illness Patient Stated Chief Complaint: SI Medicare Admission Attestation: For traditional Medicare patients the provided hospital inpatient services are reasonable and necessary and in the case of services not specified as inpatient -only under 42 CFR 419.22 (n), that they are appropriately provided as inpatient services in accordance 42 CFR 412.3. For Critical Access Hospital the patient may reasonably be expected to be discharged or transferred to a hospital within 96 hours after admission to the Critical Access Hospital. Admitted From: Home Plans for Post Hospital Care: Home History of Present Illness: Mr. Ordonez is a 42 year old male who was admitted secondary to SI. Client has multiple stressors including being homeless. Mother has terminal cancer, he was kicked out by his father, girlfriend is in rehab, he is on the waiting list for section 8 housing, he had a recent neck surgery and doctors are now wanting to operate on his back. Off meds since early February. Scheduled to see Psychiatrist 03/10/18. Saw counselor yesterday and she recommended he seek admission. Client states his drug of choice is alcohol. Able to get sober from alcohol but lately he has been staying in drug houses due to being homeless and he is using other substances. Tox screen positive for benzos and cocaine. Doesn't want to use. States he is trying to do the right things but feels overwhelmed. States his anxiety is the biggest factor when it comes to his SI. Diagnosed with Bipolar Disorder. Previous hospitalizations for SI. Claims he was prescribed Seroquel, Remeron, [place], and Vlaium for mental health. Will call pharmacy and verify doses. Past Med Surg Social Fam HX - Past Medical History Medical history: arthritis, hyperlipidemia, other - Past Psychiatric History Psychiatric history: Reports: anxiety, bipolar, depression, prior suicide attempt, previous psychiatric hospitalization Family psychiatric history: Unknown Family History of Suicide: Unknown - Past Surgical History Surgical History: orthopedic, other, other - Social History Smoking Status: Current every day smoker Smokeless Tobacco Status: No Alcohol use: none Drug use: none - Family History Mother Hx Family Cancer: Yes (colon) Father Hx Family Respiratory Disorders: Yes (COPD) Medications & Allergies No Known Home Drugs 03/03/18 [History] 3 Allergy/AdvReac Type Severity Reaction Status Date / Time .steroids Allergy Agitated Uncoded 12/10/17 17:29 Review of Systems Constitutional: Denies: fever, chills, weakness, weight change Eyes: Denies: eye pain, vision change Ears, Nose, Throat: Denies: ear pain, throat pain, dental pain, hearing loss, congestion Cardiovascular: Denies: chest pain, palpitations, dyspnea on exertion Respiratory: Denies: cough, dyspnea, wheezes Gastrointestinal: Denies: abdominal pain, nausea, vomiting, diarrhea, constipation Genitourinary male: Denies: urgency, dysuria, frequency, genital lesions Musculoskeletal: Reports: back pain Integumentary: Denies: rash, lesions, pruritus Neurological: Denies: headache, weakness, numbness, memory loss Endocrine: Denies: fatigue, heat or cold intolerance Hematologic/Lymphatic: Denies: easy bruising, lymphadenopathy Allergic/Immunologic: Denies: urticaria, itchy eyes Exam - HEENT Head exam IM: Present: atraumatic Eye exam IM: Present: EOMI, normal appearance, PERRL ENT exam IM: Present: normal exam - Neurological Neurological exam: Present: CN II-XII intact - Respiratory Respiratory exam IM: Present: accessory muscle use - GI/Abdominal GI/Abdominal exam IM: Present: normal bowel sounds, soft. Absent: tenderness - Extremities Extremities exam IM: Present: full ROM - Skin Skin exam IM: Present: dry, warm - Constitutional Vitals: Temp Pulse Resp BP Pulse Ox 98.3 F 83 18 128/66 97 03/04/18 09:00 03/04/18 09:00 03/04/18 09:00 03/04/18 09:00 03/03/18 20:14 General appearance: age & developmentally appropriate, well-groomed, well- nourished - Musculoskeletal Gait: normal Station: relaxed Strength & Tone: normal for patient - Psychiatric Patient Orientation: Yes Person, Yes Time, Yes Place Level of alertness: Alert Behavior: calm, cooperative Psychomotor activity: Normal Eye Contact: Maintains Eye Contact Mood Description: Depressed Affect description: full range Speech Volume: Normal Speech pattern: normal rate, normal rhythm, normal tone, fluent, spontaneous Language & Vocabulary: consistent with education Thought Process: Linear, Goal Oriented Thought Content: Yes Suicidal ideation, No Homicidal ideation, No Overt delusions Perceptual Disturbances: No Auditory hallucinations, No Visual hallucinations Attention Span Ability: Capable of Focused Attention Memory Description: Grossly Intact Patient Reliability: Reliable Historian Fund of knowledge: Yes abstraction ability, Yes average, Yes aware of current events Intelligence Estimate: Average Judgment: Limited Insight: Partial Results - Labs Labs: Laboratory Last Values WBC 7.6 K/mcL (4.3-11.1) 03/03/18 17:41 RBC 5.01 M/mcL (4.19-5.50) 03/03/18 17:41 Hgb 15.5 g/dL (12.9-16.9) 03/03/18 17:41 Hct 43.8 % (37.5-50.1) 03/03/18 17:41 MCV 87.4 fL (83.0-100.0) 03/03/18 17:41 MCH 30.9 pg (28.0-33.3) 03/03/18 17:41 MCHC 35.4 g/dL (31.6-35.5) 03/03/18 17:41 RDW 13.6 % (11.5-14.5) 03/03/18 17:41 Plt Count 363 K/mcL (140-400) 03/03/18 17:41 MPV 9.6 fL (9.4-12.4) 03/03/18 17:41 Immature Gran % 0.4 % (0-4) 03/03/18 17:41 Seg Neutrophils % 64.6 % 03/03/18 17:41 Lymphocytes % 27.3 % 03/03/18 17:41 Monocytes % 6.3 % 03/03/18 17:41 Eosinophils % 1.1 % 03/03/18 17:41 Basophils % 0.3 % 03/03/18 17:41 Neutrophils # 4.9 K/mcL (1.6-8.9) 03/03/18 17:41 Lymphocytes # 2.1 K/mcL (0.6-4.6) 03/03/18 17:41 Monocytes # 0.5 K/mcL (0.0-1.3) 03/03/18 17:41 Eosinophils # 0.1 K/mcL (0.0-0.6) 03/03/18 17:41 Basophils # 0.0 K/mcL (0.0-0.2) 03/03/18 17:41 Sodium 140 mEq/L (136-145) 03/03/18 17:41 Potassium 3.8 mEq/L (3.5-5.1) 03/03/18 17:41 Chloride 109 mEq/L (98-107) H 03/03/18 17:41 Carbon Dioxide 25 mEq/L (23-29) 03/03/18 17:41 BUN 8 mg/dL (6-20) 03/03/18 17:41 Creatinine 0.84 mg/dL (0.70-1.30) 03/03/18 17:41 Est GFR ( Amer) > 60 (> 60) 03/03/18 17:41 Est GFR (Non-Af Amer) > 60 (> 60) 03/03/18 17:41 BUN/Creatinine Ratio 10 (6-26) 03/03/18 17:41 Glucose 103 mg/dL (70-105) 03/03/18 17:41 Calculated Osmolality 289 (280-300) 03/03/18 17:41 Calcium 9.2 mg/dL (8.6-10.3) 03/03/18 17:41 Urine Color Yellow (Yellow) 03/03/18 17:15 Urine Clarity Hazy (Clear) 03/03/18 17:15 Urine pH 5.5 pH Units (5.0-8.0) 03/03/18 17:15 Ur Specific [place] 1.020 (1.010-1.025) 03/03/18 17:15 Urine Protein Negative mg/dL (Neg-Trace) 03/03/18 17:15 Urine Glucose (UA) Normal mg/dL (Normal) 03/03/18 17:15 Urine Ketones Negative mg/dL (Negative) 03/03/18 17:15 Urine Blood Large (Negative) H 03/03/18 17:15 Urine Nitrite Negative (Negative) 03/03/18 17:15 Urine Bilirubin Negative (Negative) 03/03/18 17:15 Urine Urobilinogen Normal mg/dL (Normal) 03/03/18 17:15 Ur Leukocyte Esterase Moderate (Negative) H 03/03/18 17:15 Urine Microscopic RBC 30-50 per hpf (0-3) H 03/03/18 17:15 Urine Microscopic WBC 15-30 per hpf (0-3) H 03/03/18 17:15 Ur Squamous Epith Cells Many per lpf (None-Few) H 03/03/18 17:15 Urine Bacteria None Seen per hpf (None-Few) 03/03/18 17:15 Hyaline Casts None Seen per lpf (None-Few) 03/03/18 17:15 Ur Culture Indicated? NO. (NO) A 03/03/18 17:15 Salicylates < 2.5 mg/dL (15.0-30.0) L 03/03/18 17:41 Urine Opiates Screen Negative ng/mL (Ofkmis=387) 03/03/18 17:19 Acetaminophen < 10 mcg/mL (10-20) L 03/03/18 17:41 Ur Barbiturates Screen Negative ng/mL (Mdvruc=570) 03/03/18 17:19 Ur Phencyclidine Scrn Negative ng/mL (Cutoff=25) 03/03/18 17:19 Ur Amphetamines Screen Negative ng/mL (Xawnlu=6409) 03/03/18 17:19 U Benzodiazepines Scrn Positive ng/mL (Yzhxsq=361) H 03/03/18 17:19 [place] < 0.1 mEq/L (0.6-1.2) L 03/03/18 17:41 Urine Cocaine Screen Positive ng/mL (Cutoff= 300) H 03/03/18 17:19 U Marijuana (THC) Screen Negative ng/mL (Cutoff = 50) 03/03/18 17:19 Ur Drug Screen Interp See Below 03/03/18 17:19 Ethyl Alcohol < 10 mg/dL (Less than 10) 03/03/18 17:41 Assessment and Plan (1) Bipolar disorder Current visit: No Status: Acute Plan: Admit inpatient for safety and stabilization, Close observation, Suicide Precautions per unit protocol, Encourage participation in unit milieu, Group Therapy, Monitor sleep, Monitor appetite Risks, benefits, side effects, alternatives discussed w/pt: Yes Patient agreeable to treatment: Yes Plans for Post Hospital Care: Home Estimated Length of Stay (Days): 4 Qualifiers: Active/Remission status: currently active Current bipolar episode type: mixed Current episode severity: severe Psychotic features: without psychotic features Qualified Code(s): F31.63 - Bipolar disorder, current episode mixed, severe, without psychotic features
[2018-03-04] MEDS: Lithium Carbonate 300 MG CAPSULE PO SCH (20:47)
[2018-03-04] MEDS: Gabapentin 400 MG CAPSULE PO SCH (20:48)
[2018-03-04] MEDS: traMADol 50 MG TABLET PO PRN (20:49)
--- NOTE | 2018-03-04 20:49 | Event Note ---
Date of Encounter: 03/04/18 Time of Encounter: 20:[address] Jiang, Patient apparently reported chest pain to left chest and mid left scapula area. EKG showed SR, rate 74. CXR was negative for acute pulmonary disease and waiting for Trop results. Asked unit to call cardiology for recommendations.
[2018-03-04] MEDS: Mirtazapine 15 MG TABLET PO SCH (20:50)
[2018-03-04] MEDS: tiZANidine 4 MG TABLET PO PRN (20:51)
[2018-03-05] MEDS: hydrOXYzine pamoate 25 MG CAPSULE PO PRN ×3 (05:03→20:09)
[2018-03-05] MEDS: tiZANidine 4 MG TABLET PO PRN ×3 (05:03→15:41)
[2018-03-05] MEDS: Lithium Carbonate 300 MG CAPSULE PO SCH ×2 (08:49→21:15)
[2018-03-05] MEDS: Gabapentin 400 MG CAPSULE PO SCH ×3 (08:49→21:15)
[2018-03-05] MEDS: Nicotine 21 MG PATCH.TD24 TD SCH (09:20)
--- NOTE | 2018-03-05 09:28 | Psychiatry Progress Note ---
Date of Encounter: 03/05/18 Time of Encounter: 09:19 Subjective Interval history: Client complained of 10 out of 10 chest pain last night. Cardiac work-up negative. Seen by hospitalist. Today he is very focused on his anxiety and "what works" for him. Only wants benzos. Willing to take Xanax, Valium or Klonopin. Offered small doses of daytime Seroquel which he refused after initially saying this medication works for him. Also rejected Buspar, Zoloft, Paxil, Prozac, Lexapro, Celexa, Effexor, Cymbalta. Claiming Vistaril not working at all. Discussed abuse potential for benzos and how it might be difficult for him to find an outpatient prescriber who is willing to prescribe them. Discussed how this blurb writer did not feel comfortable giving him something he might not be able to obtain on the outside. Suspect he is already experiencing some withdrawal in here even though client is adamant this is not true. Client asking to leave today after learning he is not going to get benzos. No discharge plan in place as he just came in yesterday. Homeless and may be experiencing some withdrawal. Noncommittal on . Will continue to monitor with possible discharge on Wednesday. Review of Systems Constitutional: Denies: fever, chills, weakness, weight change Eyes: Denies: eye pain, vision change Ears, Nose, Throat: Denies: ear pain, throat pain, dental pain, hearing loss, congestion Cardiovascular: Denies: chest pain, palpitations, dyspnea on exertion Respiratory: Denies: cough, dyspnea, wheezes Gastrointestinal: Denies: abdominal pain, nausea, vomiting, diarrhea, constipation Musculoskeletal: Denies: joint swelling, joint pain Neurological: Denies: headache, weakness, numbness, memory loss Results - Vital Signs Vital Signs: Temp Pulse Resp BP Pulse Ox 98.4 F 94 18 119/79 97 03/04/18 20:49 03/04/18 20:49 03/04/18 20:49 03/04/18 20:49 03/03/18 20:14 - Labs Labs: Laboratory Results - last 24 hr 03/04/18 03/05/18 03/05/18 21:09 03:03 08:16 Troponin I < 0.03 < 0.03 < 0.03 - Impressions ITS Impressions Chest X-Ray 03/04/18 20:47 IMPRESSION: No acute cardiopulmonary disease. D/ / Chele William MD / Chele William MD Interpreting Provider: Chele William MD Assessment and Plan (1) Bipolar disorder Current visit: No Status: Acute Plan: Continue hospitalization, Close observation, Suicide Precautions per unit protocol, Encourage participation in unit milieu, Group Therapy, Monitor sleep, Monitor appetite Risks, benefits, side effects, alternatives discussed w/pt: Yes Patient agreeable to treatment: Yes Qualifiers: Active/Remission status: currently active Current bipolar episode type: mixed Current episode severity: severe Psychotic features: without psychotic features Qualified Code(s): F31.63 - Bipolar disorder, current episode mixed, severe, without psychotic features Consult Discharge Plan - Plan Referrals: NONE,PCP [Primary Care Provider] - Psychiatry Exam - Constitutional Vitals: Temp Pulse Resp BP Pulse Ox 98.4 F 94 18 119/79 97 03/04/18 20:49 03/04/18 20:49 03/04/18 20:49 03/04/18 20:49 03/03/18 20:14 General appearance: age & developmentally appropriate, well-groomed, well- nourished - Musculoskeletal Gait: normal Station: relaxed Strength & Tone: normal for patient - Psychiatric Patient Orientation: Yes Person, Yes Time, Yes Place Level of alertness: Alert Behavior: calm, cooperative Psychomotor activity: Normal Eye Contact: Maintains Eye Contact Mood Description: Anxious Affect description: congruent with mood Speech Volume: Normal Speech pattern: normal rate, normal rhythm, normal tone, fluent, spontaneous Language & Vocabulary: consistent with education Thought Process: Linear, Goal Oriented Thought Content: Yes Suicidal ideation, No Homicidal ideation, No Overt delusions Perceptual Disturbances: No Auditory hallucinations, No Visual hallucinations Attention Span Ability: Capable of Focused Attention Memory Description: Grossly Intact Patient Reliability: Reliable Historian Fund of knowledge: Yes abstraction ability, Yes aware of current events Intelligence Estimate: Average Judgment: Limited Insight: Partial
[2018-03-05] MEDS: traMADol 50 MG TABLET PO PRN ×2 (12:08→20:08)
[2018-03-05] MEDS: Acetaminophen 325 MG TABLET PO PRN (18:46)
[2018-03-05] MEDS: Mirtazapine 15 MG TABLET PO SCH (21:16)
[2018-03-06] MEDS: Lithium Carbonate 300 MG CAPSULE PO SCH ×2 (08:05→20:17)
[2018-03-06] MEDS: Gabapentin 400 MG CAPSULE PO SCH ×3 (08:05→20:17)
[2018-03-06] MEDS: Nicotine 21 MG PATCH.TD24 TD SCH (08:05)
[2018-03-06] MEDS: traMADol 50 MG TABLET PO PRN ×2 (08:08→19:36)
[2018-03-06] MEDS: tiZANidine 4 MG TABLET PO PRN ×2 (08:08→19:39)
--- NOTE | 2018-03-06 10:07 | Psychiatry Progress Note ---
Date of Encounter: 03/06/18 Time of Encounter: 10:02 Subjective Interval history: Client states he is feeling a little better today. Reports SI has improved. Continues to endorse anxiety and racing thoughts. Still wants controlled substances but did not push the issue today. Asked about Funmilayo as a friend recommended this to him. Discussed how it was in the same drug class as Seroqeul and one could be substituted for the other if he preferred. However, client reported liking the sedation from the Seroquel and elected not to make any changes. Awaiting Section 8 housing. Unclear if coming from an inpatient unit will help move him up the priority list. Remains homeless. According to staff his brother visited yesterday but client had to give him a bus token from his own belongings to help him get home. Doubt this is a viable housing situation. If placement is found client can likely go home tomorrow. Still feels anxious but no longer endorsing things like crushing chest pain. Does not appear visibly anxious. Looks to be doing better. Review of Systems Constitutional: Denies: fever, chills, weakness, weight change Eyes: Denies: eye pain, vision change Ears, Nose, Throat: Denies: ear pain, throat pain, dental pain, hearing loss, congestion Cardiovascular: Denies: chest pain, palpitations, dyspnea on exertion Respiratory: Denies: cough, dyspnea, wheezes Gastrointestinal: Denies: abdominal pain, nausea, vomiting, diarrhea, constipation Musculoskeletal: Denies: joint swelling, joint pain Neurological: Denies: headache, weakness, numbness, memory loss Results - Vital Signs Vital Signs: Temp Pulse Resp BP Pulse Ox 98.1 F 96 18 120/87 97 03/05/18 19:56 03/05/18 19:56 03/05/18 19:56 03/05/18 19:56 03/03/18 20:14 - Impressions ITS Impressions Chest X-Ray 03/04/18 20:47 IMPRESSION: No acute cardiopulmonary disease. D/ / Chele William MD / Chele William MD Interpreting Provider: Chele William MD Assessment and Plan (1) Bipolar disorder Current visit: No Status: Acute Risks, benefits, side effects, alternatives discussed w/pt: Yes Patient agreeable to treatment: Yes Qualifiers: Active/Remission status: currently active Current bipolar episode type: mixed Current episode severity: severe Psychotic features: without psychotic features Qualified Code(s): F31.63 - Bipolar disorder, current episode mixed, severe, without psychotic features Consult Discharge Plan - Plan Referrals: NONE,PCP [Primary Care Provider] - Psychiatry Exam - Constitutional Vitals: Temp Pulse Resp BP Pulse Ox 98.1 F 96 18 120/87 97 03/05/18 19:56 03/05/18 19:56 03/05/18 19:56 03/05/18 19:56 03/03/18 20:14 General appearance: age & developmentally appropriate, well-groomed, well- nourished - Musculoskeletal Gait: normal Station: relaxed Strength & Tone: normal for patient - Psychiatric Patient Orientation: Yes Person, Yes Time, Yes Place Level of alertness: Alert Behavior: calm, cooperative Psychomotor activity: Normal Eye Contact: Maintains Eye Contact Mood Description: Anxious Affect description: full range Speech Volume: Normal Speech pattern: normal rate, normal rhythm, normal tone, fluent, spontaneous Language & Vocabulary: consistent with education Thought Process: Linear, Goal Oriented Thought Content: Yes Suicidal ideation, No Homicidal ideation, No Overt delusions Perceptual Disturbances: No Auditory hallucinations, No Visual hallucinations Attention Span Ability: Capable of Focused Attention Memory Description: Grossly Intact Patient Reliability: Reliable Historian Fund of knowledge: Yes abstraction ability, Yes aware of current events Intelligence Estimate: Average Judgment: Limited Insight: Partial
[2018-03-06] MEDS: hydrOXYzine pamoate 25 MG CAPSULE PO PRN (19:37)
[2018-03-06] MEDS: Mirtazapine 15 MG TABLET PO SCH (20:17)
[2018-03-07] MEDS: Lithium Carbonate 300 MG CAPSULE PO SCH ×2 (08:42→20:43)
[2018-03-07] MEDS: Nicotine 21 MG PATCH.TD24 TD SCH (08:42)
[2018-03-07] MEDS: Gabapentin 400 MG CAPSULE PO SCH ×3 (08:42→20:43)
[2018-03-07] MEDS: traMADol 50 MG TABLET PO PRN (11:33)
[2018-03-07] MEDS: tiZANidine 4 MG TABLET PO PRN (11:33)
[2018-03-07] MEDS: Nicotine 2 MG GUM BC PRN (13:58)
[2018-03-07] MEDS ORDERED: diazePAM 10 MG TABLET PO ONE (14:52)
--- NOTE | 2018-03-07 14:57 | Psychiatry Progress Note ---
Date of Encounter: 03/07/18 Time of Encounter: 14:25 Subjective Interval history: ID 42-year-old white male Chief complaint I am so anxious I cannot stand it. History of present illness: This patient has had significant anxiety. He has been on a variety of medicines to help with this including gabapentin and Zanaflex. However the patient has significant anxiety that he was having a heart attack he was being worked up for that. He is restless is pacing he reports that he took a shower and then started breaking out in sweats. The patient is not able to give me a full history of his use but he had 2 friends that offered him to purple Xanax this and he took them. This may account for the positive benzodiazepine in the urine but the patient may be having significant benzodiazepine withdrawal. The patient has signed in as a voluntary patient and we will begin a balance Valium tolerance test and we will give him 20 mg today and reassess and perhaps another 20 mg. I am concerned that the patient may have persisting use of nonprescribed benzodiazepines resulting in his current presentation. He is citing difficulties with housing section 8 and his requested help with mental health through counseling and medication management he is on lithium but the blood level was undetectable we will redraw another lithium. Review of Systems Psychiatric: Reports: depression, anxiety, abnormal sleep pattern, difficulty concentrating, panic attacks Results - Vital Signs Vital Signs: Temp Pulse Resp BP Pulse Ox 97.6 F 98 18 142/84 97 03/07/18 09:00 03/07/18 09:00 03/07/18 09:00 03/07/18 09:00 03/03/18 20:14 - Impressions ITS Impressions Chest X-Ray 03/04/18 20:47 IMPRESSION: No acute cardiopulmonary disease. D/ / Chele William MD / Chele William MD Interpreting Provider: Chele William MD Assessment and Plan (1) Suicidal ideation Current visit: Yes Status: Acute Plan: Continue hospitalization, Close observation Risks, benefits, side effects, alternatives discussed w/pt: Yes Patient agreeable to treatment: Yes (2) Bipolar disorder Current visit: No Status: Acute Plan: Continue hospitalization, Close observation, Monitor appetite Risks, benefits, side effects, alternatives discussed w/pt: Yes Patient agreeable to treatment: Yes Qualifiers: Active/Remission status: currently active Current bipolar episode type: mixed Current episode severity: severe Psychotic features: without psychotic features Qualified Code(s): F31.63 - Bipolar disorder, current episode mixed, severe, without psychotic features (3) Anxiety Current visit: No Status: Acute Plan: Continue hospitalization, Group Therapy, Family/Supportive other meeting Risks, benefits, side effects, alternatives discussed w/pt: Yes Patient agreeable to treatment: Yes (4) Alcohol abuse Current visit: No Status: Chronic Plan: Encourage participation in unit milieu, Family/Supportive other meeting Risks, benefits, side effects, alternatives discussed w/pt: Yes (5) Cervical radiculopathy Current visit: No Status: Chronic Plan: Continue hospitalization, Monitor sleep, Monitor appetite Risks, benefits, side effects, alternatives discussed w/pt: Yes Patient agreeable to treatment: Yes Consult Discharge Plan - Plan Referrals: NONE,PCP [Primary Care Provider] - Psychiatry Exam - Constitutional Vitals: Temp Pulse Resp BP Pulse Ox 97.6 F 98 18 142/84 97 03/07/18 09:00 03/07/18 09:00 03/07/18 09:00 03/07/18 09:00 03/03/18 20:14 General appearance: age & developmentally appropriate, average - Musculoskeletal Gait: normal Station: other Strength & Tone: normal for patient - Psychiatric Patient Orientation: Yes Person, Yes Time, Yes Place, Yes Circumstance Level of alertness: Sedated Behavior: anxious, dramatic Psychomotor activity: Agitated Eye Contact: Maintains Eye Contact Mood Description: Anxious Affect description: congruent with mood Speech pattern: normal rate, rambling Language & Vocabulary: grade school level Thought Process: Racing Thought Content: Yes Suicidal ideation Attention Span Ability: Unable to Sustain Attention Memory Description: Grossly Intact Patient Reliability: Questionable Historian Fund of knowledge: Yes below average Intelligence Estimate: Below Average Judgment: Limited Insight: Minimal
[2018-03-07] MEDS: Acetaminophen 325 MG TABLET PO PRN (15:27)
--- NOTE | 2018-03-07 17:47 | Electrocardiograph Report ---
[address] [address] Test Date: 2018-03-04 Pat Name: Asad Ordonez Department: 101 Room: 1A54 Gender: M Drum Tender: [id number] : 1975 Requested By: Janny Roland Order Number: [id number] Reading MD: Levi Mclean Measurements Intervals [place] Rate: 74 P: 60 NH: 192 QRS: 85 QRSD: 91 T: 47 QT: 371 QTc: 399 Interpretive Statements SINUS RHYTHM WITH SINUS ARRHYTHMIA Electronically Signed On 03-07-2018 17:46:30 EDT by Levi Mclean
[2018-03-07] MEDS: Mirtazapine 15 MG TABLET PO SCH (20:43)
[2018-03-08] MEDS: traMADol 50 MG TABLET PO PRN (08:48)
[2018-03-08] MEDS: Lithium Carbonate 300 MG CAPSULE PO SCH (08:48)
[2018-03-08] MEDS: Gabapentin 400 MG CAPSULE PO SCH (08:48)
[2018-03-08] MEDS: tiZANidine 4 MG TABLET PO PRN (08:48)
[2018-03-08 09:16] VITALS: BP 121/79
[2018-03-08] MEDS: Nicotine 2 MG GUM BC PRN (10:29)
[2018-03-08] MEDS ORDERED: diazePAM 10 MG TABLET PO ONE ×2 (12:21→17:21)
[2018-03-08] MEDS ORDERED: Baclofen 10 MG TABLET PO PRN (14:19)
--- NOTE | 2018-03-08 14:34 | Discharge Summary ---
Date of Encounter: 03/08/18 Time of Encounter: 14:00 Diagnosis - Discharge Diagnosis (1) Suicidal ideation Priority: Secondary Status: Resolved (2) Bipolar disorder Priority: Primary Status: Acute Qualifiers: Active/Remission status: currently active Current bipolar episode type: mixed Current episode severity: severe Psychotic features: without psychotic features Qualified Code(s): F31.63 - Bipolar disorder, current episode mixed, severe, without psychotic features (3) Anxiety Status: Chronic (4) Alcohol abuse Status: Chronic (5) Cervical radiculopathy Status: Chronic Medications - Discharge Medications Prescriptions: Gabapentin [Neurontin] 800 mg PO TID 60 Days #14 capsule Venedy Carbonate 300 mg PO BID 28 Days #14 capsule Mirtazapine [Remeron] 7.5 mg PO HS 28 Days #14 tablet Quetiapine Fumarate [Seroquel] 200 mg PO HS 14 Days #14 tablet Quetiapine Fumarate [Seroquel] 50 mg PO HS 14 Days #14 tablet Gabapentin [Neurontin] 800 mg PO TID 60 Days #14 capsule 03/08/18 [Rx] Venedy Carbonate 300 mg PO BID 28 Days #14 capsule 03/08/18 [Rx] Mirtazapine [Remeron] 7.5 mg PO HS 28 Days #14 tablet 03/08/18 [Rx] Quetiapine Fumarate [Seroquel] 50 mg PO HS 14 Days #14 tablet 03/08/18 [Rx] Quetiapine Fumarate [Seroquel] 200 mg PO HS 14 Days #14 tablet 03/08/18 [Rx] 3 Allergy/AdvReac Type Severity Reaction Status Date / Time .steroids Allergy Agitated Uncoded 12/10/17 17:29 Results Procedures and tests throughout hospitalization: Completed Lab Orders Category Date Time Status Troponin I Q6H Lab 03/04/18 21:09 Completed Troponin I Q6H Lab 03/05/18 03:03 Completed Troponin I Q6H Lab 03/05/18 08:16 Completed Completed Imaging Orders Category Date Time Status XR chest 2V [XR] Routine Exams 03/04/18 20:47 Completed Provider Date of admission: 03/03/18 22:04 Primary care physician: PCP NONE Consults: 03/04/18 19:59 Consult to Hospitalist [CONS] Stat Consulting Provider: Hospitalist Erlinda Reason for Consult: Chest pain 06/15 Call Completed: No Discharging clinician: Killian Woodson Psychiatry Exam - Constitutional Vitals: Temp Pulse Resp BP Pulse Ox 97.9 F 105 20 121/79 97 03/08/18 09:00 03/08/18 09:00 03/08/18 09:00 03/08/18 09:00 03/07/18 19:50 General appearance: age & developmentally appropriate, well-groomed, well- nourished - Musculoskeletal Gait: normal Station: relaxed Strength & Tone: normal for patient - Psychiatric Patient Orientation: Yes Person, Yes Time, Yes Place Level of alertness: Alert Behavior: calm, cooperative, anxious Psychomotor activity: Normal Eye Contact: Maintains Eye Contact Mood Description: Euthymic/stable Affect description: congruent with mood, full range, anxious Speech Volume: Normal Speech pattern: normal rate, normal rhythm, normal tone, fluent, spontaneous Language & Vocabulary: consistent with education Thought Process: Linear, Goal Oriented Thought Content: No Suicidal ideation, No Homicidal ideation, No Overt delusions , Yes Preoccupation Perceptual Disturbances: No Auditory hallucinations, No Visual hallucinations Attention Span Ability: Capable of Focused Attention Memory Description: Grossly Intact Patient Reliability: Reliable Historian Fund of knowledge: Yes abstraction ability, Yes aware of current events Intelligence Estimate: Average Judgment: Fair Insight: Partial Hospital Course Hospital course: Mr. Ordonez is a 42 year old male The patient is a 42-year-old white male. He was admitted on 2017. The patient's chief complaint was suicidal ideation. Over the period of time the patient had increased anxiety. At one point he complained of chest pain but was seen by the hospitalist and determined not to have an acute cardiac problem. The patient had a lithium level drawn at the time of admission but had been prescribed this child the hospital stay he had no adverse reactions to his medications will continue inpatient inpatient medicines on an outpatient basis. The patient asked for medicines for anxiety but mirtazapine hydroxyzine Zanaflex and others were ineffective. I did add baclofen at the time of discharge. The patient may take 10 mg 3 times a day read The patient may take Zanaflex 3 times a day. The patient admitted to using nonprescribed Xanax prior to admission. He did not spells any suicidal ideation. The patient had been awaiting housing but had limited residential resources nonetheless he wished to be discharged and he had a follow-up appointment on 03/10/2018 was provided 2o weeks of prescribe medicine Does patient wish to continue nicotine replacement upon disc: No - Time Spent with Patient Total time spent providing and/or coordinating discharge services: Greater than 30 minutes Assessment and Plan - Patient/Caregiver Discharge Instructions Activity: resume usual activities as tolerated Diet: regular diet - Follow up Plan Follow up with: Donte Sainz [Outside] - 03/10/18 1:00 pm (The above appointment is with the psychiatric nurse practitioner via telemedicine for assessment and medication management services. You will also see Pamela for outpatient mental health and substance abuse counseling services on 03/16/2018 at 2:00pm.) Functional capacity at discharge: independent ambulation Overall status at discharge: Stable Disposition: Home, Self-Care Quality - Multiple Antipsychotics Patient discharged on 2 or more antipsychotic medications: No Procedures - Procedures Procedures: Medication Management, Crisis Stabilization, Supportive Therapy, Group Therapy, Psychoeducational Therapy
== END 2018-03-08 15:00 | disposition home or self-care (01) | DRG 753 ==
LOC: EMEROO 17:12 → SUATTDRO 22:04 → 1ANU 22:04
PROVIDERS: ADMIT Psychiatry & Neurology Psychiatry; ATTEND Psychiatry & Neurology Forensic Psychiatry